=== PATIENT | male | born 1980 | race African-American/Black ===

== ENCOUNTER 2017-09-23 15:45 | Emergency (ER) | payer OTHER ==
[~2017-09-23] VITALS: Ht 182.9 cm; Wt 111.0 kg
[2017-09-23] MEDS ORDERED: ALBUTEROL (0.083%) 2.5MG/3ML NEB HHN STA ×2 (16:31→17:45)
[2017-09-23] MEDS ORDERED: IPRATROPIUM BROMIDE (0.02%) 0.5MG/2.5ML NEB HHN STA ×2 (16:31→17:45)
[2017-09-23] MEDS ORDERED: PREDNISONE 20MG TABLET PO STA (16:31)
[2017-09-23] MEDS ORDERED: METHYLPREDNISOLONE SOD SUCC 125 MG/2 ML VIAL IM ONE (17:00)
[2017-09-23 19:11] VITALS: BP 127/75
== END 2017-09-23 19:13 | disposition home or self-care (01) ==
LOC: ER 16:15
DX: J45.901 Unspecified asthma with (acute) exacerbation (principal); F17.200 Nicotine dependence, unspecified, uncomplicated
CPT/HCPCS: 71010; 94640; 96372; 99284; J2930; J7611